=== PATIENT | female | born 1970 ===

== ENCOUNTER 2024-12-28 11:12 | Day surgery (SDC) | payer BC ==
[2024-12-28] MEDS: IV FLUID CONTINUATION 1,000 ML IV ONE (11:26)
[2024-12-28] MEDS ORDERED: LACTATED RINGERS 1,000 ML IV SCH (11:34)
[2024-12-28] MEDS ORDERED: LIDOCAINE 1% (10MG/ML) FOR IV START INTRADERMA PRN (11:34)
[2024-12-28] MEDS: LACTATED RINGERS 1,000 ML IV SCH (11:46)
[2024-12-28] MEDS: ONDANSETRON 4 MG/2 ML VIAL IVP STA (11:48)
[2024-12-28] MEDS: DEXAMETHASONE SOD PHOSPHATE 4 MG/ML 1 ML VIAL IVP STA (11:49)
[2024-12-28] MEDS ORDERED: NEOSTIGMINE 1 MG/ML 10 ML VIAL ONE (12:33)
[2024-12-28] MEDS ORDERED: PROPOFOL 10 MG/ML 20 ML VIAL IV ONE (12:33)
[2024-12-28] MEDS ORDERED: SUCCINYLCHOLINE CHLORIDE 200 MG/10 ML VIAL IV ONE (12:33)
[2024-12-28] MEDS ORDERED: GLYCOPYRROLATE 0.2 MG/ML 2 ML VIAL ONE (12:33)
[2024-12-28] MEDS ORDERED: LIDOCAINE 1% INJ 10MG/ML (20 ML MDV) ONE (12:33)
[2024-12-28] MEDS ORDERED: ROCURONIUM 10 MG/ML (5 ML VIAL) IV ONE (12:33)
[2024-12-28 14:02] VITALS: TEMP 96.9
--- NOTE | 2024-12-28 14:33 | P.PCN ---
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 A consent was signed, timeout was done. The patient was intubated and placed on the mechanical ventilator by the anesthesia team and the patient was intubated via #8 orotracheal tube. Following intubation, the patient was attached to a mechanical ventilator. A regular adapter was attached to the orotracheal tube and the flexible bronchoscope was inserted for a complete airway inspection. Distal trachea was within normal limits. Left mainstem bronchus, left upper lobe bronchus and left lower bronchus and the various 8 segments on the left were within normal limits. Right mainstem bronchus was normal. Right upper lobe bronchus was within normal limits and it was trifurcated. Bronchus intermedius was within normal limits. Right middle lobe was within normal and the 2 segments of the right middle lobe were patent. Upon advancing the bronchoscope to the right lower lobe, there was an endobronchial tumor occupying the distal right lower lobe bronchus. There was near complete occlusion of the right lower lobe bronchus by this endobronchial tumor that was quite shiny and had smooth borders. The flexible bronchoscope was removed and endobronchial ultrasound was inserted. A complete examination of the mediastinal station was done using endobronchial ultrasound. The paraesophageal lymph node was accurately visualized through the posterior wall of the left mainstem bronchus. This was an irregular lymph node of various densities and echogenicity measuring around 4 x 1-1/2 cm in size. In fact, there was a conglomeration of lymph nodes in that area of various sizes. The rest of the mediastinal stations were free of any mediastinal lymphadenopat hy. Using a 22 gauge needle, transbronchial needle aspirate of the left paraesophageal mass/lymph node was done and a total of 5 passes were taken. Subsequently, another pass was taken and placed in the lymphoma solution. The endobronchial ultrasound was then directed to the right lower lobe and EBUS guided needle aspirate of the right lower lobe endobronchial tumor/mass was done. The endobronchial ultrasound was removed and a flex bronchoscope was inserted. Multiple endobronchial biopsy of the right lower lobe was done. In fact, the right lower lobe tumor was piecemealed out in multiple fragments and at the completion of the procedure, there was some latter day of the patency to the right lower lobe bronchus and I was able to pass the flexible bronchoscope through the right lower lobe and visualized few of the segments of the right lower lobe bronchus. Bleeding was encountered it was superficial and limited and the area was irrigated with ice cold saline. At the completion of the procedure, a bronchoalveolar lavage of the right lower lobe was done. A total of 40 cc of saline was infused and 20 cc of bloody aspirate was obtained. Therapeutic airway suctioning was done. The flex bronchoscope was removed and the patient was extubated and transferred to recovery in stable condition.
[2024-12-28 14:59] VITALS: RESP 16
[2024-12-28 15:09] VITALS: BP 138/87; PULSE 61
== END 2024-12-28 15:34 | disposition home or self-care (01) ==
LOC: ORWHC2ENDO 11:12
PROVIDERS: ATTEND Internal Medicine Critical Care Medicine
DX: D3A.090 Benign carcinoid tumor of the bronchus and lung (principal)
CPT/HCPCS: 81025; 88108; 88305; 88342; 88341; 87070; 87205; 87116; 87102; 87206; 31625; 31624; 31652; J0330; J1100; J2710; J2405; J2003; J2704; J1596; 31633